=== PATIENT | male | born 1950 | race Caucasian/White ===

== ENCOUNTER 2017-06-11 06:12 | Observation (INO) | payer MEDICARE, OTHER ==
[~2017-06-11] VITALS: Ht 175.3 cm; Wt 81.5 kg
[2017-06-11] MEDS ORDERED: SODIUM CHLORIDE 0.9% 1,000 ML IV SCH (06:56)
[2017-06-11 07:00] VITALS: BP 166/114
[2017-06-11] MEDS ORDERED: CLOP75TA22 PO (07:19)
[2017-06-11] MEDS ORDERED: AMIO100T4 PO (07:20)
[2017-06-11] MEDS ORDERED: RIVA20TA PO (07:21)
[2017-06-11] MEDS ORDERED: MAGN400T36 PO (07:23)
[2017-06-11] MEDS ORDERED: FENTANYL PF 250 MCG/5ML ONE ×2 (07:25→08:31)
[2017-06-11] MEDS ORDERED: MIDAZOLAM 1 MG/ML, 5ML ONE (07:25)
[2017-06-11] MEDS ORDERED: POT (07:27)
[2017-06-11] MEDS ORDERED: potassium PO (07:27)
[2017-06-11] MEDS ORDERED: HEPARIN 1,000 UNITS/ML, 10ML ONE (07:45)
[2017-06-11] MEDS ORDERED: PROTAMINE SULFATE 10 MG/ML, 5ML ONE (07:45)
[2017-06-11] MEDS ORDERED: ONDANSETRON 2MG/ML, 2ML IVPush PRN ×2 (10:00→10:30)
[2017-06-11] MEDS ORDERED: RIVAROXABAN 20 MG TABLET PO SCH (10:00)
[2017-06-11] MEDS ORDERED: ACETAMINOPHEN 325 MG TABLET PO PRN ×2 (10:00→10:30)
[2017-06-11] MEDS ORDERED: ZOLPIDEM 5MG TABLET PO PRN (10:00)
[2017-06-11] MEDS ORDERED: MIDAZOLAM 1 MG/ML, 2ML IV PRN (10:30)
[2017-06-11] MEDS ORDERED: MEPERIDINE/PF 25MG/0.5ML IVPush PRN (10:30)
[2017-06-11] MEDS ORDERED: FENTANYL PF 100 MCG/2ML IV PRN (10:30)
[2017-06-11] MEDS ORDERED: PROMETHAZINE 25 MG/ML, 1ML IV PRN (10:30)
[2017-06-11] MEDS ORDERED: EPHEDRINE 50 MG/ML, 1ML IVPush PRN (10:30)
[2017-06-11 11:57] VITALS: BP 108/80
[2017-06-11] MEDS ORDERED: CALCIUM CHLORIDE 10%, 10ML SYR ONE (16:02)
[2017-06-11] MEDS ORDERED: ONDANSETRON 2MG/ML, 2ML ONE (16:02)
[2017-06-11] MEDS ORDERED: DEXAMETHASONE 4 MG/ML, 1ML ONE (16:02)
[2017-06-11] MEDS ORDERED: VASOPRESSIN 20 UNIT/ML, 1ML ONE (16:02)
[2017-06-11] MEDS ORDERED: SUCCINYLCHOLINE 20 MG/ML, 10ML ONE (16:02)
[2017-06-11] MEDS ORDERED: PROPOFOL 10 MG/ML, 20ML ONE (16:02)
[2017-06-11 16:54] VITALS: BP 129/79
[2017-06-11 19:10] VITALS: BP 118/73
[2017-06-11] MEDS: MAGNESIUM OXIDE 400 MG TABLET PO SCH (20:03)
[2017-06-11] MEDS: AMIODARONE 200 MG TABLET PO SCH (20:03)
[2017-06-12 02:00] VITALS: BP 130/78
[2017-06-12 07:48] VITALS: BP 143/88
[2017-06-12] MEDS ORDERED: CLOPIDOGREL 75 MG TABLET PO SCH (09:00)
[2017-06-12] MEDS ORDERED: AMIO100T4 PO (09:02)
[2017-06-12] MEDS ORDERED: POTASSIUM CHLORIDE 20 MEQ TAB.ER.PRT ONE (09:38)
[2017-06-12] MEDS: MAGNESIUM OXIDE 400 MG TABLET PO SCH (09:48)
[2017-06-12] MEDS: AMIODARONE 200 MG TABLET PO SCH (09:48)
== END 2017-06-12 10:45 | disposition home or self-care (01) ==
LOC: CACL 06:12 → 5SO 10:00 → DCLOUNGE 06-12 10:15
PROVIDERS: ADMIT Internal Medicine Cardiovascular Disease; ATTEND Internal Medicine Cardiovascular Disease
DX: I48.91 Unspecified atrial fibrillation (principal); I48.92 Unspecified atrial flutter; I25.10 Atherosclerotic heart disease of native coronary artery without angina pectoris; I10 Essential (primary) hypertension; R00.2 Palpitations; G47.00 Insomnia, unspecified
CPT/HCPCS: 85347; 93005; 93613; 93621; 93655; 93656; 93662; C1730; C1732; C1759; C1766; C1893; C1894; G0378; J0330; J1100; J1644; J2250; J2405; J2704; J3010; J2720